=== PATIENT | female | born 1940 | race Caucasian/White ===

== ENCOUNTER 2016-12-19 19:31 | Emergency (ER) | payer MEDICARE, OTHER, SELFPAY | END 2016-12-19 21:05 | disposition home or self-care (01) | PROVIDERS: Emergency Provider Emergency Medicine; Family Provider Emergency Medicine; Visit Provider Emergency Medicine | DX: R21 Rash and other nonspecific skin eruption (principal); I10 Essential (primary) hypertension; J44.9 Chronic obstructive pulmonary disease, unspecified; E78.5 Hyperlipidemia, unspecified; K21.9 Gastro-esophageal reflux disease without esophagitis; F41.8 Other specified anxiety disorders | CPT/HCPCS: 87070; 87077; 87081; 87252; 99282 ==

== ENCOUNTER 2017-01-23 20:00 | Emergency (ER) | payer MEDICARE, OTHER, SELFPAY | END 2017-01-23 22:40 | disposition home or self-care (01) | PROVIDERS: Emergency Provider Emergency Medicine; Family Provider Emergency Medicine; Visit Provider Emergency Medicine | DX: J40 Bronchitis, not specified as acute or chronic (principal); D70.9 Neutropenia, unspecified; R04.2 Hemoptysis | CPT/HCPCS: 71020; 80053; 85025; 87275; 87276; 94640; 96365; 99284 ==

== ENCOUNTER → 2017-02-24 12:09 | Outpatient (CLI) | payer MEDICARE, OTHER, SELFPAY ==
[2017-02-24 13:50] LABS: Basophils % 0.9 % (0.1-2.0); Eosinophils # 0.1 K/mm3 (0.0-0.4); Eosinophils % 2.2 % (0.1-12.0); Hematocrit 40.3 % (37.0-47.0); Hemoglobin 12.7 g/dL (12.2-16.2); Lymphocytes # 0.7 K/mm3 (0.7-4.5); Lymphocytes % 34.1 K/mm3 (10-50); Mean Corpuscular HGB Conc 31.5 g/dL (31.8-35.4); Mean Corpuscular Hemoglobin 28.6 pg (27.0-31.2); Mean Corpuscular Volume 90.6 fl (81-99); Mean Platelet Volume 7.6 fl (7.4-10.4); Monocytes # 0.1 K/mm3 (0.1-1.0); Monocytes % 5.2 % (1.7-9.3); Neutrophils # 1.3 K/mm3 (1.8-7.8); Neutrophils % 57.6 % (37.0-80.0); Platelet Count 116 K/mm3 (142-424); Red Blood Count 4.45 M/mm3 (4.20-5.40); Red Cell Distribution Width 13.8 % (11.5-17.5); White Blood Count 2.2 K/mm3 (4.8-10.8)
[2017-02-24 14:05] LABS: Reticulocyte % (Auto) 1.1 % (0.9-3.2)
[2017-02-24 15:16] LABS: Lactate Dehydrogenase 176 U/L (82-234)
[2017-02-25 08:20] LABS: Immunoglobulin A, Qn 379 mg/dL (64-422); Immunoglobulin G, Qn 1019 mg/dL (700-1600); Immunoglobulin M, Qn 58 mg/dL (26-217)
[2017-02-25 15:16] LABS: Albumin 4.1 g/dL (2.9-4.4); Alpha-1-Globulin 0.2 g/dL (0.0-0.4); Alpha-2-Globulin 0.8 g/dL (0.4-1.0); Protein, Total 7.1 g/dL (6.0-8.5)
[2017-02-26 11:13] LABS: Cold Agglutinin Titer, Quant Negative (Neg <1:32)
[2017-02-26 17:15] LABS: Haptoglobin 118 mg/dL (34-200)
[2017-02-26 17:17] LABS: Antinuclear Antibodies, IFA Positive (.)
== END ==
PROVIDERS: PCP Nurse Practitioner; Visit Provider Nurse Practitioner
DX: D61.818 Other pancytopenia (principal)
CPT/HCPCS: 36415; 82784; 83010; 83615; 84165; 85025; 85044; 85060; 86038; 86157

== ENCOUNTER 2017-04-09 20:09 | Emergency (ER) | payer MEDICARE, OTHER, SELFPAY ==
[2017-04-09 20:17] VITALS: BP 185/90; PULSE 70; RESP 22; TEMP 37; O2SAT 98; BMI 26.9
[2017-04-09 20:22] VITALS: BMI 31.6
--- NOTE | 2017-04-09 20:24 | HMH.EDGENADL ---
ED Disposition Clinical Impression: Acute bronchitis Qualifiers: Bronchitis organism: unspecified organism Qualified Code(s): J20.9 - Acute bronchitis, unspecified Disposition: Xfer SNF Condition on Discharge: Good Instructions: DI for Acute Bronchitis Additional Instructions: Additional instructions for ACUTE BRONCHITIS: Use Tylenol or Ibuprofen for pain or fever. Rest and plenty of fluids. Return immediately if you have an uncontrollable fever greater than 102 degrees, severe headache or neck stiffness, difficulty breathing or shortness of breath, persistent vomiting, severe sore throat or inability to swallow. See your physician if not improving in 4-5 days. Prescriptions: Benzonatate [Tessalon Perle 100mg Cap] 100 mg PO TIDP PRN #20 cap PRN Reason: Cough levoFLOXacin [Levaquin 500mg tab] 500 mg PO DAILY #7 tab Referrals: Lilian Strong APRN [Primary Care Provider] - 3 days - Critical Care Critical Care Time: No Attestation: On , the high probability of a clinically significant, sudden or life threatening deterioration of the following system(s) required my full and direct attention, intervention and personal management. The time I documented below is in addition to time spent performing reported procedures but includes the following listed in this critical care notation. Medical Decision Making Vital Signs: 04/09/17 20:17 04/09/17 20:43 Temperature 98.6 F Temperature Source Temporal Artery Scan Pulse Rate 64 Pulse Rate [Right Radial] 70 Respiratory Rate 22 Blood Pressure [Right Arm] 185/90 Blood Pressure Mean [Right Arm] 121 Blood Pressure Source [Right Arm] Automatic Cuff Blood Pressure Position [Right Arm] Sitting 02 Sat by Pulse Oximetry 98 Oxygen Delivery Method Room Air - Lab Data Lab Results 04/09/17 20:13: Influenza Type A Ag Negative, Influenza Type B Ag Negative, Group A Strep Rapid Negative 04/09/17 21:00: WBC 1.2 L*, RBC 3.77 L, Hgb 10.9 L, Hct 33.3 L, MCV 88.3, MCH 28.9, MCHC 32.8, RDW 13.5, Plt Count 67 L, MPV 8.4, Neut % (Auto) 44.5, Lymph % (Auto) 44.9, [place] % (Auto) 7.9, Eos % (Auto) 1.5, Baso % (Auto) 1.2, Neut # (Auto) 0.5 L*, Lymph # (Auto) 0.5 L, [place] # (Auto) 0.1, Eos # (Auto) 0.0, Baso # (Auto) 0.0 04/09/17 21:00: Sodium 134 L, Potassium 3.3 L, Chloride 97 L, Carbon Dioxide 29, Anion Gap 11.3, BUN 8, Creatinine 0.75, Estimated Creat Clear 67, Estimated GFR 76, Est GFR ( Amer) 91, Glucose 176 H, Calcium 8.1 L, Total Bilirubin 0.3, AST 40 H, ALT 37, Alkaline Phosphatase 82, Total Protein 7.6, Albumin 3.8, Globulin 3.8 H, Albumin/Globulin Ratio 1.0 L 04/09/17 21:00: Lactic Acid 1.3 Result diagrams: 04/09/17 21:00 04/09/17 21:00 Orders (Tests/Meds): ED MEDICATIONS Generic Name Dose Route Start Last Admin Trade Name Freq PRN Reason Stop Dose Admin Albuterol/Ipratropium 3 ml 04/09/17 20:45 04/09/17 22:29 Duoneb 3ml Neb IH 05/09/17 20:44 3 ml Q1H WILLIAM Administration Discontinued Medications Generic Name Dose Route Start Last Admin Trade Name Freq PRN Reason Stop Dose Admin Hydrocodone Bitart/Acetaminophen 1 tab 04/09/17 20:34 04/09/17 20:38 [place] 5/325mg Tablet PO 04/09/17 20:35 1 tab ONCE ONE Administration Benzonatate 100 mg 04/09/17 20:34 04/09/17 20:38 Tessalon Perles 100mg Capsule PO 04/09/17 20:35 100 mg ONCE ONE Administration Levofloxacin 500 mg 04/09/17 21:56 04/09/17 22:06 Levaquin 500mg Tab PO 04/09/17 21:57 500 mg ONCE ONE Administration Protocol Potassium Chloride 40 meq 04/09/17 21:56 04/09/17 22:06 Klor-Con 20meq Tablet PO 04/09/17 21:57 40 meq ONCE ONE Administration ORDERS Category Date Time Status XR chest portable Stat Exams 04/09/17 20:33 Taken Blood Culture Stat Micro 04/09/17 21:00 Received Strep Screen Confirmation Stat Micro 02/16/18 20:13 Received - Radiology Data #1 Image(s): Chest Image Reviewed: Yes I reviewed the patient'
[2017-04-09 20:29] LABS: Strep Scrn Group A (Rapid) Negative (Negative)
--- NOTE | 2017-04-09 20:33 | XR_ITS ---
XR chest portable Ordering Physician: Jayjay Chaidez MD Patient Age: 76 years: Female HISTORY: ITS.REASON: cough TECHNIQUE: AP portable upright chest COMPARISON :01-23-17 CXR FINDINGS Less optimal inspiration today compared to prior study 2017. Right gilma-Diaphragms only down to anterior fourth rib.. This yields slight crowding of markings bilateral most evident on right.. Most likely suboptimal inspiration as well as the higher contrast digital technique on today's CXR accounts for today's mild accentuation of markings towardright lung base.. These features I believe also yields upper normal density appearance at the right polly . No consolidation nor convincing pneumonic infiltrate.. However, if cough/& respiratory symptoms persist would recommend a follow-up PA & lateral chest to better evaluate suggested. The right chest right hilar region to verify stable.. There may be some minor atelectasis towards right lung base today. Heart normal size. Aorta tortuous. Superior mediastinum unremarkable. Hyperexpansion most evident at the left upper lung field and apex. IMPRESSION: ] Stable chest with nothing definitely acute Favor less optimal inspiration and higher contrast technique slightly eccentric markings right infrahilar region right polly on today's study. Doubt significant change. However if cough and respiratory symptoms persist a follow-up 2 view chest suggested.
[2017-04-09 20:43] VITALS: PULSE 64; PULSE 71
[2017-04-09 21:08] LABS: Basophils % 1.2 % (0.1-2.0); Eosinophils % 1.5 % (0.1-12.0); Hematocrit 33.3 % (37.0-47.0); Hemoglobin 10.9 g/dL (12.2-16.2); Lymphocytes # 0.5 K/mm3 (0.7-4.5); Lymphocytes % 44.9 K/mm3 (10-50); Mean Corpuscular HGB Conc 32.8 g/dL (31.8-35.4); Mean Corpuscular Hemoglobin 28.9 pg (27.0-31.2); Mean Corpuscular Volume 88.3 fl (81-99); Mean Platelet Volume 8.4 fl (7.4-10.4); Monocytes # 0.1 K/mm3 (0.1-1.0); Monocytes % 7.9 % (1.7-9.3); Neutrophils # 0.5 K/mm3 (1.8-7.8); Neutrophils % 44.5 % (37.0-80.0); Platelet Count 67 K/mm3 (142-424); Red Blood Count 3.77 M/mm3 (4.20-5.40); Red Cell Distribution Width 13.5 % (11.5-17.5)
[2017-04-09 21:15] LABS: White Blood Count 1.2 K/mm3 (4.8-10.8)
[2017-04-09 21:28] LABS: Alanine Aminotransferase 37 U/L (12-78); Albumin Level 3.8 gm/dL (3.4-5.0); Alkaline Phosphatase 82 U/L (46-116); Anion Gap 11.3 mEq/L (5-15); Aspartate Amino Transferase 40 U/L (15-37); Bilirubin,Total 0.3 mg/dL (0.2-1.0); Blood Urea Nitrogen 8 mg/dL (7-18); Calcium 8.1 mg/dL (8.5-10.1); Carbon Dioxide 29 mmol/L (21.0-32.0); Chloride 97 mmol/L (98-107); Creatinine Clearance Estimated 67 mL/min (0-300); Creatinine,Serum 0.75 mg/dL (0.55-1.02); Estimated Glomerular Filt Rate 76 ml/min (>60); GFR (African American) 91 ML/MIN (>60); Globulin 3.8 gm/dl (1.3-3.2); Glucose 176 mg/dL (74-106); Potassium 3.3 mmoL/L (3.5-5.1); Sodium 134 mmol/L (136-145); Total Protein,Serum 7.6 gm/dL (6.4-8.2)
[2017-04-09 21:32] LABS: Lactic Acid 1.3 mmol/L (0.4-2.0)
[2017-04-09 22:09] VITALS: BP 153/89; PULSE 71; RESP 20; TEMP 36.8; O2SAT 96
[2017-04-09 22:39] VITALS: PULSE 71; PULSE 74
[2017-04-09 23:00] VITALS: BP 138/90; PULSE 90; RESP 18; TEMP 37.1; O2SAT 98
== END 2017-04-09 23:00 ==
PROVIDERS: Emergency Provider Emergency Medicine; Family Provider Emergency Medicine; PCP Nurse Practitioner
DX: J20.9 Acute bronchitis, unspecified (principal); J44.9 Chronic obstructive pulmonary disease, unspecified; E78.5 Hyperlipidemia, unspecified; M25.561 Pain in right knee; M25.562 Pain in left knee; Z79.899 Other long term (current) drug therapy; D61.818 Other pancytopenia
CPT/HCPCS: 71045; 80053; 83605; 85025; 87040; 87275; 87276; 87430; 99283

== ENCOUNTER 2017-05-07 05:44 | Emergency (ER) | payer MEDICARE, OTHER, SELFPAY ==
[2017-05-07 05:45] VITALS: BP 172/84; PULSE 67; RESP 24; TEMP 37.2; O2SAT 100; BMI 30.1
--- NOTE | 2017-05-07 05:58 | XR_ITS ---
XR chest portable COMPARISON: Portable upright chest 04/09/2017 HISTORY: Cough TECHNIQUE: Portable upright chest FINDINGS: There is a poor inspiration resulting some crowding of the vascular markings at the right base in particular. I cannot deftly exclude a minimal pneumonic infiltrate but the findings are likely due to the poor inspiration. There is aortic tortuosity but no cardiomegaly. The left lung field is clear. IMPRESSION: Poor inspiration, doubt acute chest pathology
--- NOTE | 2017-05-07 06:10 | HMH.EDSOB ---
ED Disposition Clinical Impression: Bronchitis Acute bronchitis Qualifiers: Bronchitis organism: unspecified organism Qualified Code(s): J20.9 - Acute bronchitis, unspecified Leukopenia Qualifiers: Leukopenia type: unspecified Qualified Code(s): D72.819 - Decreased white blood cell count, unspecified Disposition: Home, Self-Care Condition on Discharge: Good Instructions: DI for Chronic Bronchitis Additional Instructions: fluids and use meds Referrals: Lilian Strong APRN [Primary Care Provider] - - Critical Care Critical Care Time: No Attestation: On 05/07/17, the high probability of a clinically significant, sudden or life threatening deterioration of the following system(s) required my full and direct attention, intervention and personal management. The time I documented below is in addition to time spent performing reported procedures but includes the following listed in this critical care notation. Medical Decision Making - Medical Records Medical records reviewed: Yes: I reviewed the patient's medical records. - Andrew Inquiry Pt receiving controlled substance: No Vital Signs: 05/07/17 05:45 Temperature 98.9 F Temperature Source Rectal Pulse Rate [Left Brachial] 67 Respiratory Rate 24 Blood Pressure [Left Arm] 172/84 Blood Pressure Mean [Left Arm] 113 Blood Pressure Source [Left Arm] Automatic Cuff Blood Pressure Position [Left Arm] Sitting 02 Sat by Pulse Oximetry 100 Oxygen Delivery Method Nasal Cannula Oxygen Flow Rate (LPM) 3 - Lab Data Lab results reviewed: Yes: I reviewed the patient's lab results. Lab Results 05/07/17 06:20: WBC 1.8 L*, RBC 4.04 L, Hgb 11.3 L, Hct 35.0 L, MCV 86.6, MCH 28.0, MCHC 32.3, RDW 13.3, Plt Count 80 L, MPV 7.4, Neut % (Auto) 56.8, Lymph % (Auto) 33.1, [place] % (Auto) 6.4, Eos % (Auto) 2.8, Baso % (Auto) 0.9, Neut # (Auto) 1.0 L, Lymph # (Auto) 0.6 L, [place] # (Auto) 0.1, Eos # (Auto) 0.1, Baso # (Auto) 0.0 05/07/17 06:20: Sodium 130 L, Potassium 3.7, Chloride 94 L, Carbon Dioxide 29, Anion Gap 10.7, BUN 10, Creatinine 0.60, Estimated Creat Clear 60, Estimated GFR 98, Est GFR ( Amer) 118, Glucose 160 H, Calcium 8.3 L, Total Bilirubin 0.5, AST 21, ALT 24, Alkaline Phosphatase 87, Total Protein 7.3, Albumin 3.3 L, Globulin 4.0 H, Albumin/Globulin Ratio 0.8 L 05/07/17 06:20: Lactic Acid 0.6 05/07/17 06:20: Total Creatine Kinase 45, CK-MB (CK-2) 0.9, CK-MB (CK-2) Rel Index 2.0, Troponin I < 0.02 Result diagrams: 05/07/17 06:20 05/07/17 06:20 Orders (Tests/Meds): ED MEDICATIONS Generic Name Dose Route Start Last Admin Trade Name Freq PRN Reason Stop Dose Admin Ceftriaxone Sodium 1 gm/ 50 mls @ 100 mls/hr 05/07/17 08:15 Sodium Chloride IV 05/21/17 08:14 Q24H WILLIAM Protocol Ketorolac Tromethamine 30 mg 05/07/17 08:03 Toradol 30mg/Ml Vial IV 05/07/17 08:04 ONCE ONE Discontinued Medications Generic Name Dose Route Start Last Admin Trade Name Freq PRN Reason Stop Dose Admin Acetaminophen 500 mg 05/07/17 07:25 05/07/17 07:26 Tylenol 500mg Tablet PO 05/07/17 07:26 500 mg ONCE ONE Administration Methylprednisolone Sodium Succinate 125 mg 05/07/17 06:30 05/07/17 06:40 Solu-Medrol 125mg/2ml Vial IV 05/07/17 06:31 125 mg ONCE ONE Administration ORDERS Category Date Time Status Upper Respiratory Panel, PCR Stat Lab 05/07/17 06:51 Ordered Blood Culture Stat Micro 05/07/17 05:58 Ordered Sputum Culture & Gram Stain Stat Micro 05/07/17 06:20 Results - Radiology Data #1 Image(s): Chest Image Reviewed: Yes I reviewed the patient's radiology image Preliminary Findings: Normal/NAD - ECG Data Tracing #1 I reviewed this ECG and interpreted as documented below: Normal Sinus Rhythm: Yes Ischemic changes: non-specific ST-T wave changes Resp/SOB HPI - General Chief Complaint: Shortness of Breath/Dyspnea Stated Complaint: coughing up blood Time Seen by Provider:
[2017-05-07 06:45] LABS: Basophils % 0.9 % (0.1-2.0); Eosinophils # 0.1 K/mm3 (0.0-0.4); Eosinophils % 2.8 % (0.1-12.0); Hemoglobin 11.3 g/dL (12.2-16.2); Lymphocytes # 0.6 K/mm3 (0.7-4.5); Lymphocytes % 33.1 K/mm3 (10-50); Mean Corpuscular HGB Conc 32.3 g/dL (31.8-35.4); Mean Corpuscular Volume 86.6 fl (81-99); Mean Platelet Volume 7.4 fl (7.4-10.4); Monocytes # 0.1 K/mm3 (0.1-1.0); Monocytes % 6.4 % (1.7-9.3); Neutrophils % 56.8 % (37.0-80.0); Platelet Count 80 K/mm3 (142-424); Red Blood Count 4.04 M/mm3 (4.20-5.40); Red Cell Distribution Width 13.3 % (11.5-17.5); White Blood Count 1.8 K/mm3 (4.8-10.8)
[2017-05-07 07:00] LABS: Alanine Aminotransferase 24 U/L (12-78); Albumin Level 3.3 gm/dL (3.4-5.0); Albumin/Globulin Ratio 0.8 (1.1-1.8); Alkaline Phosphatase 87 U/L (46-116); Anion Gap 10.7 mEq/L (5-15); Aspartate Amino Transferase 21 U/L (15-37); Bilirubin,Total 0.5 mg/dL (0.2-1.0); Blood Urea Nitrogen 10 mg/dL (7-18); Calcium 8.3 mg/dL (8.5-10.1); Carbon Dioxide 29 mmol/L (21.0-32.0); Chloride 94 mmol/L (98-107); Creatinine Clearance Estimated 60 mL/min (0-300); Estimated Glomerular Filt Rate 98 ml/min (>60); GFR (African American) 118 ML/MIN (>60); Glucose 160 mg/dL (74-106); Potassium 3.7 mmoL/L (3.5-5.1); Sodium 130 mmol/L (136-145); Total Protein,Serum 7.3 gm/dL (6.4-8.2)
[2017-05-07 07:03] LABS: Lactic Acid 0.6 mmol/L (0.4-2.0)
[2017-05-07 07:35] LABS: Creatine Kinase 45 U/L (26-192); Creatine Kinase MB 0.9 mg/ml (0.0-3.6); Troponin I < 0.02 ng/ml (0.00-0.06)
[2017-05-07 08:17] VITALS: BP 166/83; PULSE 69; RESP 20; TEMP 36.8; O2SAT 95
[2017-05-07 08:26] LABS: Adenovirus,PCR Not Detected (NotDetected); Bordetella Pertussis Not Detected (NotDetected); Chlamydophila Pneumoniae, PCR Not Detected (NotDetected); Coronavirus 229E Not Detected (NotDetected); Coronavirus NL63 Not Detected (NotDetected); Coronavirus OC43 Not Detected (NotDetected); Coronovirus HKU1,PCR Not Detected (NotDetected); Human Metapneumovirus Not Detected (NotDetected); Influenza A, PCR Not Detected (NotDetected); Influenza AH1, 2009 Not Detected (NotDetected); Influenza AH1, PCR Not Detected (NotDetected); Influenza AH3,PCR Not Detected (NotDetected); Influenza B, PCR Not Detected (NotDetected); Mycoplasma Pneumoniae, PCR Not Detected (NotDected); Parainfluenza 1, PCR Not Detected (NotDetected); Parainfluenza 2, PCR Not Detected (NotDetected); Parainfluenza 3, PCR Not Detected (NotDetected); Parainfluenza 4, PCR Not Detected (NotDetected); Respiratory Syncytial Virus Not Detected (NotDetected); Rhinovirus/Enterovirus Not Detected (NotDetected)
[2017-05-07 08:48] VITALS: BP 173/86; PULSE 63; RESP 20; TEMP 37; O2SAT 99
--- NOTE | 2017-05-09 18:34 | PC.NURSE ---
Addressed sputum culture results with SEVERIANO Avelar; stated she would address sputum culture results on pt
== END 2017-05-07 08:50 | disposition home or self-care (01) ==
PROVIDERS: Emergency Provider Emergency Medicine; Family Provider Emergency Medicine; PCP Nurse Practitioner
DX: J20.9 Acute bronchitis, unspecified (principal); J44.9 Chronic obstructive pulmonary disease, unspecified; E78.5 Hyperlipidemia, unspecified; Z79.899 Other long term (current) drug therapy; D72.819 Decreased white blood cell count, unspecified
CPT/HCPCS: 71045; 80053; 82550; 82553; 83605; 84484; 85025; 87070; 87077; 87186; 87205; 87486; 87581; 87633; 87798; 93005; 96374; 96375; 99283

== ENCOUNTER 2017-05-07 17:25 | Emergency (ER) | payer MEDICARE, OTHER, SELFPAY ==
[2017-05-07 17:27] VITALS: BP 154/91; PULSE 85; RESP 20; TEMP 36.8; O2SAT 90; BMI 26.6
[2017-05-07 18:21] LABS: Basophils % 0.2 % (0.1-2.0); Eosinophils % 0.3 % (0.1-12.0); Hematocrit 35.4 % (37.0-47.0); Hemoglobin 11.7 g/dL (12.2-16.2); Lymphocytes # 0.3 K/mm3 (0.7-4.5); Lymphocytes % 11.7 K/mm3 (10-50); Mean Corpuscular Hemoglobin 28.5 pg (27.0-31.2); Mean Corpuscular Volume 86.5 fl (81-99); Mean Platelet Volume 7.6 fl (7.4-10.4); Monocytes # 0.1 K/mm3 (0.1-1.0); Neutrophils # 2.1 K/mm3 (1.8-7.8); Neutrophils % 85.7 % (37.0-80.0); Platelet Count 106 K/mm3 (142-424); Red Blood Count 4.09 M/mm3 (4.20-5.40); Red Cell Distribution Width 13.3 % (11.5-17.5); White Blood Count 2.4 K/mm3 (4.8-10.8)
[2017-05-07 18:26] LABS: MANUAL DIFFERENTIAL MANUAL DIFFERENTIAL (MANUAL DIFF)
[2017-05-07 18:30] LABS: Alanine Aminotransferase 26 U/L (12-78); Albumin Level 3.6 gm/dL (3.4-5.0); Albumin/Globulin Ratio 0.8 (1.1-1.8); Alkaline Phosphatase 91 U/L (46-116); Anion Gap 15.1 mEq/L (5-15); Bilirubin,Total 0.3 mg/dL (0.2-1.0); Blood Urea Nitrogen 10 mg/dL (7-18); Calcium 8.6 mg/dL (8.5-10.1); Carbon Dioxide 25 mmol/L (21.0-32.0); Chloride 92 mmol/L (98-107); Creatinine Clearance Estimated 60 mL/min (0-300); Estimated Glomerular Filt Rate 70 ml/min (>60); GFR (African American) 85 ML/MIN (>60); Globulin 4.5 gm/dl (1.3-3.2); Glucose 259 mg/dL (74-106); Sodium 127 mmol/L (136-145); Total Protein,Serum 8.1 gm/dL (6.4-8.2)
[2017-05-07 18:52] LABS: Aspartate Amino Transferase 30 U/L (15-37); Potassium 5.1 mmoL/L (3.5-5.1)
--- NOTE | 2017-05-07 19:15 | HMH.EDEPIS ---
ED Disposition Clinical Impression: Epistaxis Disposition: Home, Self-Care Condition on Discharge: Good Instructions: DI for Nosebleed Referrals: Tyrell Ferguson MD [Primary Care Provider] - - Critical Care Critical Care Time: No Attestation: On 05/07/17, the high probability of a clinically significant, sudden or life threatening deterioration of the following system(s) required my full and direct attention, intervention and personal management. The time I documented below is in addition to time spent performing reported procedures but includes the following listed in this critical care notation. Medical Decision Making - Andrew Inquiry Pt receiving controlled substance: No Andrew was queried for this patient: No Vital Signs: 05/07/17 17:27 Temperature 98.3 F Temperature Source Oral Pulse Rate [Right Brachial] 85 Respiratory Rate 20 Blood Pressure [Right Arm] 154/91 Blood Pressure Mean [Right Arm] 112 Blood Pressure Source [Right Arm] Automatic Cuff Blood Pressure Position [Right Arm] Sitting 02 Sat by Pulse Oximetry 90 L Oxygen Delivery Method Room Air - Lab Data Lab Results 05/07/17 18:00: WBC 2.4 L D, RBC 4.09 L, Hgb 11.7 L, Hct 35.4 L, MCV 86.5, MCH 28.5, MCHC 33.0, RDW 13.3, Plt Count 106 L D, MPV 7.6, Neut % (Auto) 85.7 H, Lymph % (Auto) 11.7, [place] % (Auto) 2.0, Eos % (Auto) 0.3, Baso % (Auto) 0.2, Neut # (Auto) 2.1, Lymph # (Auto) 0.3 L, [place] # (Auto) 0.1, Eos # (Auto) 0.0, Baso # (Auto) 0.0, Total Counted 100, Neutrophils % (Manual) 62, Band Neutrophils % 8.0, Lymphocytes % (Manual) 29, Monocytes % (Manual) 1 L, Platelet Estimate Slight decrease, Microcytosis 1+ 05/07/17 18:00: Sodium 127 L, Potassium 5.1 D, Chloride 92 L, Carbon Dioxide 25, Anion Gap 15.1 H, BUN 10, Creatinine 0.80 D, Estimated Creat Clear 60, Estimated GFR 70, Est GFR ( Amer) 85 D, Glucose 259 H D, Calcium 8.6, Total Bilirubin 0.3, AST 30 D, ALT 26, Alkaline Phosphatase 91, Total Protein 8.1, Albumin 3.6, Globulin 4.5 H, Albumin/Globulin Ratio 0.8 L Result diagrams: 05/07/17 18:00 05/07/17 18:00 Orders (Tests/Meds): ORDERS Category Date Time Status PT/PTT Stat Lab 05/07/17 19:18 Ordered Medical Decision Narrative: patient admits that she has low blood counts and has seen nurses medical assistants phlebotomists before. Epistaxis HPI - General Chief complaint: Epistaxis Stated complaint: NOSE BLEED Time Seen by Provider: 05/07/17 18:15 Mode of Arrival: EMS Source of Information: Patient Limitations: No Limitations Description of Symptoms (Recalled from ER Triage Doc. by RN): NOSE BLEED THAT WONT STOP - History of Present Illness MD complaint: epistaxis Location: bilateral nostril Onset (ago): hour(s) (1) Duration: constant Treatment prior to arrival: other (use home oxygen) - Related Data Home Medications Medication Instructions Recorded Confirmed acetaminophen 325 mg capsule 500 mg PO Q6H PRN 02/24/17 05/07/17 atorvastatin 10 mg tablet 10 mg PO QDAY 02/24/17 05/07/17 buspirone 15 mg tablet 15 mg PO QDAY tab 02/24/17 05/07/17 calcium carbonate 500 mg calcium 1,000 mg PO TIDP PRN tab 02/24/17 05/07/17 (1,250 mg) chewable tablet clonazepam 0.5 mg tablet 0.5 mg PO BID tab 02/24/17 05/07/17 diphenhydramine 25 mg capsule 25 mg PO Q4HP PRN cap 02/24/17 05/07/17 duloxetine 60 mg capsule,delayed 60 mg PO QDAY 02/24/17 05/07/17 release gabapentin 400 mg capsule 400 mg PO TID 02/24/17 05/07/17 guaifenesin ER 600 mg tablet, 600 mg PO Q12H PRN 02/24/17 05/07/17 extended release 12 hr losartan 25 mg tablet 25 mg PO QDAY 02/24/17 05/07/17 oxybutynin chloride ER 5 mg 5 mg PO QDAY 02/24/17 05/07/17 tablet,extended release 24 hr pantoprazole 40 mg tablet,delayed 40 mg PO BID tab 02/24/17 05/07/17 release potassium chloride ER 10 mEq 10 meq PO BID 02/24/17 05/07/17 tablet,extended release quetiapine 100 mg tablet 150 mg PO QHS tab 02/24/17 05/07/17 Azithromycin [Z-Maxx 250mg Tab] 250 mg PO UD DOS
--- NOTE | 2017-05-07 19:19 | ED_ITS ---
ED Disposition Clinical Impression: Epistaxis Disposition: Home, Self-Care Condition on Discharge: Good Instructions: DI for Nosebleed Referrals: Tyrell Ferguson MD [Primary Care Provider] - - Critical Care Critical Care Time: No Attestation: On 05/07/17, the high probability of a clinically significant, sudden or life threatening deterioration of the following system(s) required my full and direct attention, intervention and personal management. The time I documented below is in addition to time spent performing reported procedures but includes the following listed in this critical care notation. Medical Decision Making - Andrew Inquiry Pt receiving controlled substance: No Andrew was queried for this patient: No Vital Signs: 05/07/17 17:27 Temperature 98.3 F Temperature Source Oral Pulse Rate [Right Brachial] 85 Respiratory Rate 20 Blood Pressure [Right Arm] 154/91 Blood Pressure Mean [Right Arm] 112 Blood Pressure Source [Right Arm] Automatic Cuff Blood Pressure Position [Right Arm] Sitting 02 Sat by Pulse Oximetry 90 L Oxygen Delivery Method Room Air - Lab Data Lab Results 05/07/17 18:00: WBC 2.4 L D, RBC 4.09 L, Hgb 11.7 L, Hct 35.4 L, MCV 86.5, MCH 28.5, MCHC 33.0, RDW 13.3, Plt Count 106 L D, MPV 7.6, Neut % (Auto) 85.7 H, Lymph % (Auto) 11.7, [place] % (Auto) 2.0, Eos % (Auto) 0.3, Baso % (Auto) 0.2, Neut # (Auto) 2.1, Lymph # (Auto) 0.3 L, [place] # (Auto) 0.1, Eos # (Auto) 0.0, Baso # (Auto) 0.0, Total Counted 100, Neutrophils % (Manual) 62, Band Neutrophils % 8.0, Lymphocytes % (Manual) 29, Monocytes % (Manual) 1 L, Platelet Estimate Slight decrease, Microcytosis 1+ 05/07/17 18:00: Sodium 127 L, Potassium 5.1 D, Chloride 92 L, Carbon Dioxide 25 , Anion Gap 15.1 H, BUN 10, Creatinine 0.80 D, Estimated Creat Clear 60, Estimated GFR 70, Est GFR ( Amer) 85 D, Glucose 259 H D, Calcium 8.6, Total Bilirubin 0.3, AST 30 D, ALT 26, Alkaline Phosphatase 91, Total Protein 8.1, Albumin 3.6, Globulin 4.5 H, Albumin/Globulin Ratio 0.8 L Result diagrams: 05/07/17 18:00 05/07/17 18:00 Orders (Tests/Meds): ORDERS Category Date Time Status PT/PTT Stat Lab 05/07/17 19:18 Ordered Medical Decision Narrative: patient admits that she has low blood counts and has seen correspondence review clerk before. Epistaxis HPI - General Chief complaint: Epistaxis Stated complaint: NOSE BLEED Time Seen by Provider: 05/07/17 18:15 Mode of Arrival: EMS Source of Information: Patient Limitations: No Limitations Description of Symptoms (Recalled from ER Triage Doc. by RN): NOSE BLEED THAT WONT STOP - History of Present Illness MD complaint: epistaxis Location: bilateral nostril Onset (ago): hour(s) (1) Duration: constant Treatment prior to arrival: other (use home oxygen) - Related Data Home Medications Medication Instructions Recorded Confirmed acetaminophen 325 mg capsule 500 mg PO Q6H PRN 02/24/17 05/07/17 atorvastatin 10 mg tablet 10 mg PO QDAY 02/24/17 05/07/17 buspirone 15 mg tablet 15 mg PO QDAY tab 02/24/17 05/07/17 calcium carbonate 500 mg calcium 1,000 mg PO TIDP PRN tab 02/24/17 05/07/17 (1,250 mg) chewable tablet clonazepam 0.5 mg tablet 0.5 mg PO BID tab 02/24/17 05/07/17 diphenhydramine 25 mg capsule 25 mg PO Q4HP PRN cap 02/24/17 05/07/17 duloxetine 60 mg capsule,delayed 60 mg PO QDAY 02/24/17
[2017-05-07 19:32] LABS: Lymphocytes % 29 % (10-50); Monocytes % 1 % (2-9); Neutrophils % 62 % (42-76); Platelet Estimate Slight Decrease; Total Cells Counted 100
[2017-05-07 19:33] LABS: Microcytosis 1+
[2017-05-07 20:34] LABS: Activated Partial Thrombo Time 24.1 seconds (23.6-34.0); Prothrombin Time 11.9 seconds (9.4-11.8)
[2017-05-07 21:33] VITALS: BP 151/88; PULSE 98; RESP 18; TEMP 37.1; O2SAT 98
== END 2017-05-07 21:39 | disposition home or self-care (01) ==
PROVIDERS: Emergency Provider Family Medicine; Family Provider Emergency Medicine; PCP Emergency Medicine
DX: R04.0 Epistaxis (principal); J20.9 Acute bronchitis, unspecified; J44.9 Chronic obstructive pulmonary disease, unspecified; Z99.81 Dependence on supplemental oxygen
CPT/HCPCS: 36415; 71045; 80053; 82550; 82553; 83605; 84484; 85007; 85025; 85610; 85730; 87070; 87077; 87186; 87205; 87486; 87581; 87633; 87798; 93005; 96374; 96375; 99211; 99282; 99283

== ENCOUNTER 2017-06-01 16:56 | Observation (INO) ==
--- NOTE | 2017-06-01 17:31 | Emergency Department Note ---
ED Disposition Condition on Discharge: Good - Critical Care Critical Care Time: No <VivekJayjay lundberg - Last Filed: 06/01/17 20:01> <Tyrell Ferguson - Last Filed: 06/01/17 21:26> Clinical Impression: Epistaxis, Pancytopenia Hypotension Qualifiers: Hypotension type: unspecified hypotension type Qualified Code(s): I95.9 - Hypotension, unspecified Chest pain Qualifiers: Chest pain type: precordial pain Qualified Code(s): R07.2 - Precordial pain Disposition: Admitted as Observation Referrals: Tyrell Ferguson MD [Primary Care Provider] - Attestation: On 06/01/17, the high probability of a clinically significant, sudden or life threatening deterioration of the following system(s) required my full and direct attention, intervention and personal management. The time I documented below is in addition to time spent performing reported procedures but includes the following listed in this critical care notation. Medical Decision Making - Andrew Inquiry Pt receiving controlled substance: No - Lab Data Result diagrams: 06/01/17 17:25 06/01/17 17:25 - Radiology Data #1 Image(s): Chest Image Reviewed: Yes I reviewed the patient's radiology image Preliminary Findings: Normal/NAD <Jayjay Chaidez - Last Filed: 06/01/17 20:01> - Lab Data Lab results reviewed: Yes: I reviewed the patient's lab results. Result diagrams: 06/01/17 17:25 06/01/17 17:25 - ECG Data Tracing #2 I reviewed this ECG and interpreted as documented below: Normal Sinus Rhythm: Yes Ischemic changes: non-specific ST-T wave changes - Physician Consults Physician Consulted: joan Reason -: Pt condition - STEPHEN Score for Non-STEMI Age of patient: 65 yrs or more Number of risk factors for CAD: Presence of 3 or more Prior coronary artery stenosis(seen in coronary angiography): Less than 50% ST-Segment deviation on ECG (more than 1 min): Absent Prior aspirin intake: ASA intake in the last 7 days Severe anginal chest pain: Two or more episodes in last 24 hours Elevated cardiac markers(CK-MB or troponin): Absent Non-Stemi Risk Score: 4 <Tyrell Ferguson - Last Filed: 06/01/17 21:26> Vital Signs: 06/01/17 17:01 06/01/17 18:31 Temperature 98.4 F Temperature Source Oral Pulse Rate [Right] 92 H 85 Respiratory Rate 18 12 Blood Pressure [Right Arm] 103/61 92/76 Blood Pressure Mean [Right Arm] 75 81 Blood Pressure Source [Right Arm] Automatic Cuff Automatic Cuff Blood Pressure Position [Right Arm] Supine Supine 02 Sat by Pulse Oximetry 94 L 97 Oxygen Delivery Method Room Air - Lab Data Lab Results 06/01/17 17:25: WBC 1.9 L*, RBC 3.72 L, Hgb 10.4 L, Hct 33.2 L, MCV 89.1, MCH 28.0, MCHC 31.5 L, RDW 13.4, Plt Count 91 L, MPV 8.3, Neut % (Auto) 52.2, Lymph % (Auto) 35.6, [place] % (Auto) 7.9, Eos % (Auto) 3.1, Baso % (Auto) 1.2, Neut # ( Auto) 1.0 L, Lymph # (Auto) 0.7, [place] # (Auto) 0.2, Eos # (Auto) 0.1, Baso # ( Auto) 0.0 06/01/17 17:25: Sodium 142, Potassium 3.7, Chloride 105, Carbon Dioxide 28, Anion Gap 12.7, BUN 16, Creatinine 1.47 H, Estimated Creat Clear 43, Estimated GFR 35 L, Est GFR ( Amer) 42 L, Glucose 171 H, Calcium 8.7, Total Bilirubin 0.3, AST 23, ALT 22, Alkaline Phosphatase 119 H, Total Protein 7.4, Albumin 3.7, Globulin 3.7 H, Albumin/Globulin Ratio 1.0 L 06/01/17 17:25: Lactic Acid 2.1 H 06/01/17 17:25: Total Creatine Kinase 43, CK-MB (CK-2) 0.8, CK-MB (CK-2) Rel Index 1.9, Troponin I < 0.02 06/01/17 17:52: Specimen Source R/r, O2 % R/a, ABG pH 7.41, ABG pCO2 37.1, ABG pO2 74.5 L, ABG HCO3 22.8, ABG Total CO2 23.9, ABG O2 Saturation 95, ABG Base Excess -1.9, Thom Test Y 06/01/17 19:00: Urine Color Yellow, Urine Appearance Clear, Urine pH 5.5, Ur Specific [place] 1.025, Urine Protein Trace, Urine Glucose (UA) Negative, Urine Ketones Trace, Urine Blood 2+, Urine Nitrate Negative, Urine Bilirubin 1+ A, Urine Urobilinogen 0.2, Ur Leukocyte Esterase Trace, Urine RBC 5-10, Urine WBC 5 -10, Ur Squamous Epith Cells None, Urine Bacteria 2+ 06/01/17 20:00: Troponin I < 0.02 Orders (Tests/Meds): ED MEDICATIONS Discontinued Medications Generic Name Dose Route Start Last Admin Trade Name Freq PRN Reason Stop Dose Admin Sodium Chloride 1,000 mls @ 999 mls/hr 06/01/17 18:15 06/01/17 18:15 Sod Chlor 0.9% 1000ml Bag IV 06/01/17 19:15 999 mls/hr .Q1H1M WILLIAM Administration ORDERS Category Date Time Status Blood Culture Stat Micro 06/01/17 17:25 Received Urine Culture Stat Micro 06/01/17 19:00 Received ABG [Arterial Blood Gas] Stat RT 06/01/17 17:27 Ordered ECG Request by /Belkis Stat Y 06/01/17 17:17 Ordered - ECG Data Tracing #1 EKG interpreted by Jayjay Chaidez MD: Rhythm: sinus Rate: 86 Alpha: normal Ectopy: none Conduction: normal ST Segment Changes: Nonspecific V6, III, AVF T Wave Changes: Nonspecific V6, III, AVF Q Waves: none No evidence of acute ischemia or injury (Jayjay Chaidez) Medical Decision Narrative: 6:10 PM: Discussed with Dr. Ferguson. Perform 2 sets of troponins. 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 Ferguson, who will assume care of the patient at this time. I have discussed all clinical information including history, physical and diagnostic study results. Preliminary diagnoses based on information available at this point have been recorded by me. Controlled substance administration and critical care statement are also preliminary, as of the time of handoff. (Jayjay Chaidez) General Adult HPI - General Mode of Arrival: EMS Limitations: Physical Limitations Description of Symptoms (Recalled from ER Triage Doc. by RN): pain in both shoulders radiating to the back and both legs <Jayjay Chaidez - Last Filed: 06/01/17 20:01> <Tyrell Ferguson - Last Filed: 06/01/17 21:26> - General Chief complaint: PAIN Stated complaint: pain in shoulders Time Seen by Provider: 06/01/17 17:30 - History of Present Illness HPI narrative: The patient is brought in by ambulance. Seen by in emergency department for a left anterior nosebleed. She had not bled heavily, coughed up a few clots. When staff checked on her this afternoon they found her to have a blood pressure in the 70s and therefore she is sent back in. The patient complains of pain across her back across both shoulders and going down her back to her knees and her knees hurt severely. She says all of this is chronic for several months. Dr. Ferguson confirms patient has chronic pain. (Jayjay Chaidez) - Related Data Home Medications Medication Instructions Recorded Confirmed acetaminophen 325 mg capsule 500 mg PO Q6H PRN 02/24/17 06/01/17 atorvastatin 10 mg tablet 10 mg PO QDAY 02/24/17 06/01/17 buspirone 15 mg tablet 15 mg PO BID tab 02/24/17 06/01/17 calcium carbonate 500 mg calcium 1,000 mg PO TIDP PRN tab 02/24/17 06/01/17 (1,250 mg) chewable tablet clonazepam 0.5 mg tablet 0.5 mg PO BID tab 02/24/17 06/01/17 diphenhydramine 25 mg capsule 25 mg PO Q4HP PRN cap 02/24/17 06/01/17 duloxetine 60 mg capsule,delayed 60 mg PO QDAY 02/24/17 06/01/17 release gabapentin 400 mg capsule 400 mg PO TID 02/24/17 06/01/17 guaifenesin ER 600 mg tablet, 600 mg PO Q12H PRN 02/24/17 06/01/17 extended release 12 hr losartan 25 mg tablet 25 mg PO QDAY 02/24/17 06/01/17 oxybutynin chloride ER 5 mg 5 mg PO QDAY 02/24/17 06/01/17 tablet,extended release 24 hr pantoprazole 40 mg tablet,delayed 40 mg PO BID tab 02/24/17 06/01/17 release potassium chloride ER 10 mEq 10 meq PO BID 02/24/17 06/01/17 tablet,extended release Benzonatate [Benzonatate 100mg 100 mg PO TIDP PRN 05/07/17 06/01/17 cap] LORazepam [Ativan 1mg tablet] 1 mg PO BID PRN 05/07/17 06/01/17 Mag Hydrox/Aluminum Hyd/Simeth 30 ml PO Q6HP PRN 05/07/17 06/01/17 [Gricel-Lanta Liquid] OXcarbazepine [Trileptal 150mg 150 mg PO BID 05/07/17 06/01/17 tablet] Previous Rx's Medication Instructions Recorded Benzonatate [Tessalon [place]le 100mg 100 mg PO TIDP PRN #20 cap 04/09/17 Cap] Allergies Allergy/AdvReac Type Severity Reaction Status Date / Time No Known Allergies Allergy Verified 02/24/17 11:13 [facility] History Medical History: Reports:: Chronic Obstructive Pulmonary Disease (COPD), Hyperlipidemia Denies:: Cancer, Diabetes Mellitus Type 1, Diabetes Mellitus Type 2, Internal Pacemaker, MRSA Other Medical History: Reports: Anemia Laterality Cases: Bilateral: Arthroscopy Knee Other Surgeries: No: Pacemaker Amputation: No Fractures: No - Social History Smoking Status: Never smoker Alcohol Intake: never Substance Use Type: denies use Occupational Status: disabled Housing: skilled nursing Household Members: caregiver - Psychiatric History Expresses thoughts of harming self/others: None Suicide Plan Description: No Plan Family Hx:: Unable to obtain <Jayjay Chaidez - Last Filed: 06/01/17 20:01> ROS Obtained: Yes All systems reviewed & no additional complaints - ENT Ears, Nose, Mouth, and Throat: Reports epistaxis - Musculoskeletal Musculoskeletal: Reports joint pain, Reports back pain <Jayjay Chaidez - Last Filed: 06/01/17 20:01> Physical Exam - General General appearance: in no apparent distress - Head Head exam: atraumatic, normocephalic, normal inspection - Eye Eye exam: Present: normal appearance, PERRL, EOMI - ENT ENT exam: Present: normal exam, normal oropharynx, mucous membranes moist, TM's normal bilaterally, normal external ear exam - Neck Neck exam: Present: normal inspection, full ROM, trachea midline. Absent: meningismus, lymphadenopathy - Chest Chest inspection: Present: normal inspection, symmetric chest wall rise. Absent : tenderness - Respiratory Respiratory exam: Present: normal lung sounds bilaterally. Absent: respiratory distress - Cardiovascular Cardiovascular exam: Present: regular rate, normal rhythm. Absent: JVD - Abdominal Exam Abdominal exam: Present: soft, normal bowel sounds. Absent: distention, tenderness, guarding - Extremities Exam Extremities exam: Present: normal inspection, full ROM, normal capillary refill. Absent: calf tenderness - Back Exam Back exam: Present: normal inspection, tenderness - Neurological Exam Neurological exam: Present: alert, oriented X3 - Psychiatric Psychiatric exam: Present: normal affect, normal mood - Skin Skin exam: Present: warm, dry, intact, normal color - Lymphatic Lymphatic Findings: no adenopathy <Jayjay Chaidez - Last Filed: 06/01/17 20:01> <Tyrell Ferguson - Last Filed: 06/01/17 21:26> - General Comment: Mildly drowsy, as she was this morning (Jayjay Chaidez) - Back Exam Comment: Generalized upper back (Jayjay Chaidez) - Other Other exam information: Tenderness of both knees without effusions, erythema, edema, or ecchymosis. Neurovascular intact throughout. Peripheral pulses 2+ in all 4 extremities and symmetric. No pulse deficits. (Jayjay Chaidez)
[2017-06-01 17:39] LABS: Basophils % 1.2 % (0.1-2.0); Eosinophils # 0.1 K/mm3 (0.0-0.4); Eosinophils % 3.1 % (0.1-12.0); Hematocrit 33.2 % (37.0-47.0); Hemoglobin 10.4 g/dL (12.2-16.2); Lymphocytes # 0.7 K/mm3 (0.7-4.5); Lymphocytes % 35.6 K/mm3 (10-50); Mean Corpuscular HGB Conc 31.5 g/dL (31.8-35.4); Mean Corpuscular Volume 89.1 fl (81-99); Mean Platelet Volume 8.3 fl (7.4-10.4); Monocytes # 0.2 K/mm3 (0.1-1.0); Monocytes % 7.9 % (1.7-9.3); Neutrophils % 52.2 % (37.0-80.0); Platelet Count 91 K/mm3 (142-424); Red Blood Count 3.72 M/mm3 (4.20-5.40); Red Cell Distribution Width 13.4 % (11.5-17.5); White Blood Count 1.9 K/mm3 (4.8-10.8)
[2017-06-01 17:54] LABS: ABG Base Excess -1.9 mmol/L (-2.4-2.3); ABG HCO3 22.8 mmhg (22.0-26.0); ABG Oxygen Saturation 95 % (90-100); ABG PCO2 37.1 mmhg (35.0-45.0); ABG PH 7.41 mmol/L (7.35-7.45); ABG PO2 74.5 mmhg (80-100); ABG TCO2 23.9 mmhg (23-27); Allen's Test Y
[2017-06-01 17:55] LABS: Oxygen R/A %
[2017-06-01 17:55] LABS: Albumin Level 3.7 gm/dL (3.4-5.0); Anion Gap 12.7 mEq/L (5-15); Bilirubin,Total 0.3 mg/dL (0.2-1.0); Calcium 8.7 mg/dL (8.5-10.1); Globulin 3.7 gm/dl (1.3-3.2); Potassium 3.7 mmoL/L (3.5-5.1); Total Protein,Serum 7.4 gm/dL (6.4-8.2)
[2017-06-01 18:19] LABS: Creatine Kinase 43 U/L (26-192)
[2017-06-01 19:05] LABS: Microscopic, Urine URINE MICROSCOPIC (MICROSCOPIC)
[2017-06-01 19:19] LABS: Appearance,Urine CLEAR (Clear); Blood, Urine 2+ (Negative); Color,Urine YELLOW (Yellow); Glucose,Urine (UA) Negative (Negative); Ketones,Urine TRACE (Negative); Leukocyte Esterase,Urine TRACE (Negative); PH,Urine 5.5 (5.0-8.5); Protein,Urine TRACE (Negative); Specific Gravity, Urine 1.025 (1.005-1.030); Urobilinogen,Urine 0.2 EU/dl (0.2)
[2017-06-01 19:29] LABS: Bacteria,Urine 2+ /lpf; Bilirubin,Urine 1+ (Negative)
[2017-06-02 07:01] LABS: Anion Gap 11.8 mEq/L (5-15); Chol/HDL Ratio 2.6 (1-3.5); Potassium 3.8 mmoL/L (3.5-5.1)
[2017-06-02 07:15] LABS: Basophils % 1.4 % (0.1-2.0); Eosinophils # 0.1 K/mm3 (0.0-0.4); Eosinophils % 4.3 % (0.1-12.0); Hematocrit 30.6 % (37.0-47.0); Hemoglobin 9.7 g/dL (12.2-16.2); Lymphocytes # 0.5 K/mm3 (0.7-4.5); Lymphocytes % 36.4 K/mm3 (10-50); Mean Corpuscular HGB Conc 31.6 g/dL (31.8-35.4); Mean Corpuscular Hemoglobin 28.3 pg (27.0-31.2); Mean Corpuscular Volume 89.6 fl (81-99); Mean Platelet Volume 8.3 fl (7.4-10.4); Monocytes # 0.1 K/mm3 (0.1-1.0); Monocytes % 6.2 % (1.7-9.3); Neutrophils # 0.7 K/mm3 (1.8-7.8); Neutrophils % 51.8 % (37.0-80.0); Platelet Count 88 K/mm3 (142-424); Red Blood Count 3.41 M/mm3 (4.20-5.40); Red Cell Distribution Width 13.2 % (11.5-17.5)
[2017-06-02 07:27] LABS: White Blood Count 1.4 K/mm3 (4.8-10.8)
--- NOTE | 2017-06-02 08:20 | Pharmacy Consult Notes ---
[facility] Pharmacy VTE Monitoring - Patient Demographics Admission date: 06/01/17 Report Date: 06/02/17 Time: 08:20 Allergies/Adverse Reactions: Patient Allergies No Known Allergies Allergy (Verified 02/24/17 11:13) Height: 1.65 m Weight: 80.031 kg Patient Problems: Current Active Problems Epistaxis (Acute) Hypotension (Acute) Chest pain (Acute) Pancytopenia (Acute) - VTE Risk Labs: VTE Related Lab Results Hgb 9.7 g/dL (12.2-16.2) L 06/02/17 06:00 Hct 30.6 % (37.0-47.0) L 06/02/17 06:00 Plt Count 88 K/mm3 (142-424) L 06/02/17 06:00 BUN 13 mg/dL (7-18) 06/02/17 06:00 Creatinine 0.82 mg/dL (0.55-1.02) D 06/02/17 06:00 Estimated Creat Clear 62 mL/min (0-300) 06/02/17 06:00 Was VTE Risk Assessment Performed: Yes VTE Score: 2 VTE Risk Level: Very Low Risk Clinical Trial Participant: No - Prophylaxis VTE Prophylaxis Ordered?: Yes Types of VTE Prophylaxis: TEDS Knee High Location of Applied Device: Bilateral Lower Extremeties
--- NOTE | 2017-06-02 09:05 | Consult Report ---
History of Present Illness Consult date: 06/02/17 Requesting physician: Tyrell Ferguson Consult reason: chest pain, hypotension Chief complaint: Chest discomfort, weakness Additional Medical History:: 1. History of pancytopenia with previous workup by Dr. Alta ramires. 2. COPD without tobacco use 3. Hyperlipidemia History of present illness: 76-year-old white female resident of [facility] presented to the emergency department for weakness and chest discomfort with radiation into the neck. Patient relates similar episodes recently with activity. She reports a remote history of myocardial infarction without further workup. Patient denies tobacco use or history of diabetes. In the emergency department patient was noted to have T-wave inversion in the inferior leads that resolved with resolution of chest discomfort. Patient was noted to be hypotensive upon ER evaluation which improved once chest discomfort resolved. Patient has a history of chronic pancytopenia with white count in the 1-2000 range, hemoglobin in the 10 range and platelet counts in the 80-100,000 range. Patient had a spontaneous episode of epistaxis earlier in the day that was treated in ER and patient was sent back to [facility] with a resultant chest discomfort, weakness and hypotension episode after that. She was admitted for further evaluation. Troponins overnight have returned normal. EKG this room this morning shows sinus rhythm with nonspecific ST-T abnormalities in inferior leads. Cardiology consulted for further evaluation. [facility] History Medical History: Reports:: Chronic Obstructive Pulmonary Disease (COPD), Hyperlipidemia Denies:: Cancer, Diabetes Mellitus Type 1, Diabetes Mellitus Type 2, Internal Pacemaker, MRSA Other Medical History: Reports: Anemia Laterality Cases: Bilateral: Arthroscopy Knee Other Surgeries: No: Pacemaker Amputation: No Fractures: No - *Social History Smoking Status: Never smoker Alcohol Intake: never Substance Use Type: denies use Occupational Status: disabled Housing: detention Household Members: caregiver - Psychiatric History Expresses thoughts of harming self/others: None Suicide Plan Description: No Plan *Family Hx:: Unable to obtain Meds Home Medications Medication Instructions Recorded Confirmed Type acetaminophen 325 mg capsule 500 mg PO Q6H PRN 02/24/17 06/01/17 History atorvastatin 10 mg tablet 10 mg PO HS 02/24/17 06/02/17 History buspirone 15 mg tablet 15 mg PO BID tab 02/24/17 06/02/17 History calcium carbonate 500 mg calcium 1,000 mg PO TIDP PRN tab 02/24/17 06/01/17 History (1,250 mg) chewable tablet clonazepam 0.5 mg tablet 0.5 mg PO BID tab 02/24/17 06/02/17 History diphenhydramine 25 mg capsule 25 mg PO Q4HP PRN cap 02/24/17 06/01/17 History duloxetine 60 mg capsule,delayed 60 mg PO DAILY 02/24/17 06/02/17 History release gabapentin 400 mg capsule 400 mg PO TID 02/24/17 06/02/17 History guaifenesin ER 600 mg tablet, 600 mg PO BID 02/24/17 06/02/17 History extended release 12 hr losartan 25 mg tablet 25 mg PO DAILY 02/24/17 06/02/17 History oxybutynin chloride ER 5 mg 5 mg PO DAILY 02/24/17 06/02/17 History tablet,extended release 24 hr pantoprazole 40 mg tablet,delayed 40 mg PO BID tab 02/24/17 06/02/17 History release potassium chloride ER 10 mEq 10 meq PO BID 02/24/17 06/01/17 History tablet,extended release Benzonatate [Benzonatate 100mg 100 mg PO TIDP PRN 05/07/17 06/01/17 History cap] LORazepam [Ativan 1mg tablet] 1 mg PO BID PRN 05/07/17 06/01/17 History Mag Hydrox/Aluminum Hyd/Simeth 30 ml PO Q6HP PRN 05/07/17 06/01/17 History [Gricel-Lanta Liquid] OXcarbazepine [Trileptal] 300 mg PO BID 06/02/17 06/02/17 History Quetiapine Fumarate 200 mg PO TID 06/02/17 06/02/17 History Allergies Allergy/AdvReac Type Severity Reaction Status Date / Time No Known Allergies Allergy Verified 02/24/17 11:13 Review of Systems - *Cardiovascular Reports chest pain, Reports shortness of breath with activity - *Respiratory Reports shortness of breath - *Gastrointestinal Denies abdominal pain - *Musculoskeletal Reports back pain Exam Vital signs and Labs for Last 24 Hours: Temp Pulse Resp BP Pulse Ox 97.9 F 61 20 163/78 98 06/02/17 08:04 06/02/17 08:04 06/02/17 08:04 06/02/17 08:04 06/02/17 08:04 Laboratory Results - last 24 hr 06/02/17 06:00: Troponin I < 0.02 06/02/17 06:00: WBC 1.4 L* D, RBC 3.41 L, Hgb 9.7 L, Hct 30.6 L, MCV 89.6, MCH 28.3, MCHC 31.6 L, RDW 13.2, Plt Count 88 L, MPV 8.3, Neut % (Auto) 51.8, Lymph % (Auto) 36.4, [place] % (Auto) 6.2, Eos % (Auto) 4.3, Baso % (Auto) 1.4, Neut # ( Auto) 0.7 L*, Lymph # (Auto) 0.5 L, [place] # (Auto) 0.1, Eos # (Auto) 0.1, Baso # (Auto) 0.0 06/02/17 06:00: Sodium 142, Potassium 3.8, Chloride 106, Carbon Dioxide 28, Anion Gap 11.8, BUN 13, Creatinine 0.82 D, Estimated Creat Clear 62, Estimated GFR 68, Est GFR ( Amer) 82 D, Glucose 131 H D, Magnesium 1.1 L, Triglycerides 120, Cholesterol 87 L, LDL Cholesterol 29, VLDL Cholesterol 24, HDL Cholesterol 34, Cholesterol/HDL Ratio 2.6 I & O for Last 24 hours: Intake & Output 05/30/17 05/31/17 06/01/17 06/02/17 11:59 11:59 11:59 11:59 Intake Total 480 / 480 Balance 480 / 480 Weight 176 lb 7 oz - *Routine Neck Exam Absent: JVD, carotid bruit - *Routine Respiratory Exam Present: CTA bilaterally - *Routine Cardiovascular Exam Present: RRR. Absent: murmur, gallop - *Routine Extremities Exam Absent: edema - *Routine Neurological Exam Present: alert, oriented X3, moving all extremities Assessment and Plan (1) Chest pain Current visit: Yes Status: Acute Qualifiers: Chest pain type: precordial pain Qualified Code(s): R07.2 - Precordial pain Category: Medical Code(s): R07.9 - Chest pain, unspecified (2) COPD (chronic obstructive pulmonary disease) Current visit: Yes Status: Acute Category: Medical Code(s): J44.9 - Chronic obstructive pulmonary disease, unspecified (3) Hyperlipidemia Current visit: Yes Status: Acute Category: Medical Code(s): E78.5 - Hyperlipidemia, unspecified (4) Epistaxis Current visit: Yes Status: Acute Category: Medical Code(s): R04.0 - Epistaxis (5) Hypotension Current visit: Yes Status: Acute Qualifiers: Hypotension type: unspecified hypotension type Qualified Code(s): I95.9 - Hypotension, unspecified Category: Medical Code(s): I95.9 - Hypotension, unspecified (6) Pancytopenia Current visit: Yes Status: Acute Category: Medical Code(s): D61.818 - Other pancytopenia - Assessment and plan all Dx Assessment and Plan for all problems:: 1. With fluctuating EKG changes, chest discomfort and transient hypotension with a STEPHEN score of 3 would recommend patient have left heart catheterization. Risk and benefits discussed with the patient she agrees to proceed. 2. Add low dose metoprolol 25 mg daily and ASA 81 mg daily. 3. Echo pending 4. Further recommendations pending cath
--- NOTE | 2017-06-02 16:29 | History & Physical Report ---
*Admission Date: 06/01/17 *Chief complaint: chest pain *History of present illness: this wf who had nosebleed and was sent to [facility] and returned with chest and upper back pain with abn bp and had abn ekg in ed which improved with improved sx -76-year-old white female resident of [facility] presented to the emergency department for weakness and chest discomfort with radiation into the neck. Patient relates similar episodes recently with activity. She reports a remote history of myocardial infarction without further workup. Patient denies tobacco use or history of diabetes. In the emergency department patient was noted to have T-wave inversion in the inferior leads that resolved with resolution of chest discomfort. Patient was noted to be hypotensive upon ER evaluation which improved once chest discomfort resolved. Patient has a history of chronic pancytopenia with white count in the 1-2000 range, hemoglobin in the 10 range and platelet counts in the 80-100,000 range. Patient had a spontaneous episode of epistaxis earlier in the day that was treated in ER and patient was sent back to [facility] with a resultant chest discomfort, weakness and hypotension episode after that. She was admitted for further evaluation. Troponins overnight have returned normal. EKG this room this morning shows sinus rhythm with nonspecific ST-T abnormalities in inferior leads. Cardiology consulted for further al [facility] History I have reviewed the patient's past medical history: Yes Medical History: Reports:: Chronic Obstructive Pulmonary Disease (COPD), Hyperlipidemia Denies:: Cancer, Diabetes Mellitus Type 1, Diabetes Mellitus Type 2, Internal Pacemaker, MRSA Other Medical History: Reports: Anemia Laterality Cases: Bilateral: Arthroscopy Knee Other Surgeries: No: Pacemaker Amputation: No Fractures: No - *Social History Smoking Status: Never smoker Alcohol Intake: never Substance Use Type: denies use Occupational Status: disabled Housing: [facility] Household Members: caregiver - Psychiatric History Expresses thoughts of harming self/others: None Suicide Plan Description: No Plan *Family Hx:: Unable to obtain Review of Systems - Review of Systems Review of systems:: pertinent systems reviewed and negative unless documented below - Constitutional Denies fever(s) - Eyes Denies change in vision - ENT Denies sore throat - *Cardiovascular Reports chest pain at rest - *Respiratory Denies cough - *Gastrointestinal Denies nausea - *Genitourinary Denies blood in urine - *Musculoskeletal Denies joint pain, Denies joint swelling - Integumentary/Breasts Denies rash - *Neurologic Denies dizziness - Psychiatric Reports anxiety Meds Home Medications Medication Instructions Recorded Confirmed Type acetaminophen 325 mg capsule 500 mg PO Q6H PRN 02/24/17 06/01/17 History atorvastatin 10 mg tablet 10 mg PO HS 02/24/17 06/02/17 History buspirone 15 mg tablet 15 mg PO BID tab 02/24/17 06/02/17 History calcium carbonate 500 mg calcium 1,000 mg PO TIDP PRN tab 02/24/17 06/01/17 History (1,250 mg) chewable tablet clonazepam 0.5 mg tablet 0.5 mg PO BID tab 02/24/17 06/02/17 History diphenhydramine 25 mg capsule 25 mg PO Q4HP PRN cap 02/24/17 06/01/17 History duloxetine 60 mg capsule,delayed 60 mg PO DAILY 02/24/17 06/02/17 History release gabapentin 400 mg capsule 400 mg PO TID 02/24/17 06/02/17 History guaifenesin ER 600 mg tablet, 600 mg PO BID 02/24/17 06/02/17 History extended release 12 hr losartan 25 mg tablet 25 mg PO DAILY 02/24/17 06/02/17 History oxybutynin chloride ER 5 mg 5 mg PO DAILY 02/24/17 06/02/17 History tablet,extended release 24 hr pantoprazole 40 mg tablet,delayed 40 mg PO BID tab 02/24/17 06/02/17 History release potassium chloride ER 10 mEq 10 meq PO BID 02/24/17 06/01/17 History tablet,extended release Benzonatate [Benzonatate 100mg 100 mg PO TIDP PRN 05/07/17 06/01/17 History cap] LORazepam [Ativan 1mg tablet] 1 mg PO BID PRN 05/07/17 06/01/17 History Mag Hydrox/Aluminum Hyd/Simeth 30 ml PO Q6HP PRN 05/07/17 06/01/17 History [Gricel-Lanta Liquid] OXcarbazepine [Trileptal] 300 mg PO BID 06/02/17 06/02/17 History Quetiapine Fumarate 200 mg PO TID 06/02/17 06/02/17 History Allergies Allergy/AdvReac Type Severity Reaction Status Date / Time No Known Allergies Allergy Verified 02/24/17 11:13 Exam Vital signs and Labs for Last 24 Hours: Temp Pulse Resp BP Pulse Ox 97.9 F 75 20 158/89 90 L 06/02/17 11:35 06/02/17 12:17 06/02/17 12:17 06/02/17 12:17 06/02/17 12:17 Laboratory Results - last 24 hr 06/02/17 06:00: Troponin I < 0.02 06/02/17 06:00: WBC 1.4 L* D, RBC 3.41 L, Hgb 9.7 L, Hct 30.6 L, MCV 89.6, MCH 28.3, MCHC 31.6 L, RDW 13.2, Plt Count 88 L, MPV 8.3, Neut % (Auto) 51.8, Lymph % (Auto) 36.4, [place] % (Auto) 6.2, Eos % (Auto) 4.3, Baso % (Auto) 1.4, Neut # ( Auto) 0.7 L*, Lymph # (Auto) 0.5 L, [place] # (Auto) 0.1, Eos # (Auto) 0.1, Baso # (Auto) 0.0 06/02/17 06:00: Sodium 142, Potassium 3.8, Chloride 106, Carbon Dioxide 28, Anion Gap 11.8, BUN 13, Creatinine 0.82 D, Estimated Creat Clear 62, Estimated GFR 68, Est GFR ( Amer) 82 D, Glucose 131 H D, Magnesium 1.1 L, Triglycerides 120, Cholesterol 87 L, LDL Cholesterol 29, VLDL Cholesterol 24, HDL Cholesterol 34, Cholesterol/HDL Ratio 2.6 I & O for Last 24 hours: Intake & Output 05/31/17 06/01/17 06/02/17 06/03/17 11:59 11:59 11:59 11:59 Intake Total 480 / 480 Output Total 150 / 150 Balance 330 / 330 Weight 176 lb 7 oz - Constitutional no acute distress - *Routine HEENT Exam Head: Present: normocephalic Eye: Present: EOMI, PERRL ENT: Absent: mucous membranes dry - *Routine Neck Exam Present: supple. Absent: JVD - *Routine Respiratory Exam Present: decreased breath sounds. Absent: respiratory distress - *Routine Cardiovascular Exam Present: RRR, murmur, S4 - *Routine Abdominal Exam Present: soft - *Routine Extremities Exam Absent: calf tenderness - *Routine Skin Exam Present: dry. Absent: rash - *Routine Neurological Exam Present: alert, CN II-XII intact - Routine Psychiatric Exam Present: normal affect H&P: Result - Labs Labs: Short CBC 06/02/17 Range/Units 06:00 WBC 1.4 L* D (4.8-10.8) K/mm3 Hgb 9.7 L (12.2-16.2) g/dL Hct 30.6 L (37.0-47.0) % Plt Count 88 L (142-424) K/mm3 BMP 06/02/17 06:00 Sodium 142 Potassium 3.8 Chloride 106 Carbon Dioxide 28 BUN 13 Creatinine 0.82 D Glucose 131 H D Cardiac Enzymes 06/02/17 Range/Units 06:00 Troponin I < 0.02 (0.00-0.06) ng/ml Assessment and Plan (1) Chest pain Current visit: Yes Status: Acute Qualifiers: Chest pain type: precordial pain Qualified Code(s): R07.2 - Precordial pain Category: Medical Code(s): R07.9 - Chest pain, unspecified (2) COPD (chronic obstructive pulmonary disease) Current visit: Yes Status: Acute Category: Medical Code(s): J44.9 - Chronic obstructive pulmonary disease, unspecified (3) Hyperlipidemia Current visit: Yes Status: Acute Category: Medical Code(s): E78.5 - Hyperlipidemia, unspecified (4) Epistaxis Current visit: Yes Status: Acute Category: Medical Code(s): R04.0 - Epistaxis (5) Hypotension Current visit: Yes Status: Acute Qualifiers: Hypotension type: unspecified hypotension type Qualified Code(s): I95.9 - Hypotension, unspecified Category: Medical Code(s): I95.9 - Hypotension, unspecified (6) Pancytopenia Current visit: Yes Status: Acute Category: Medical Code(s): D61.818 - Other pancytopenia
--- NOTE | 2017-06-02 16:40 | Consult Report ---
*Admission Date: 06/01/17 *Chief complaint: epistaxis *History of present illness: this wf who had nosebleed and was sent to [facility] and returned with chest and upper back pain with abn bp and had abn ekg in ed which improved with improved sx -76-year-old white female resident of [facility] presented to the emergency department for weakness and chest discomfort with radiation into the neck. Patient relates similar episodes recently with activity. She reports a remote history of myocardial infarction without further workup. Patient denies tobacco use or history of diabetes. In the emergency department patient was noted to have T-wave inversion in the inferior leads that resolved with resolution of chest discomfort. Patient was noted to be hypotensive upon ER evaluation which improved once chest discomfort resolved. Patient has a history of chronic pancytopenia with white count in the 1-2000 range, hemoglobin in the 10 range and platelet counts in the 80-100,000 range. Patient had a spontaneous episode of epistaxis earlier in the day that was treated in ER and patient was sent back to [facility] with a resultant chest discomfort, weakness and hypotension episode after that. She was admitted for further evaluation. Troponins overnight have returned normal. EKG this room this morning shows sinus rhythm with nonspecific ST-T abnormalities in inferior leads. Cardiology consulted for further eval Review of Systems - *Neurologic Denies dizziness [facility] History Medical History: Reports:: Chronic Obstructive Pulmonary Disease (COPD), Hyperlipidemia Denies:: Cancer, Diabetes Mellitus Type 1, Diabetes Mellitus Type 2, Internal Pacemaker, MRSA Other Medical History: Reports: Anemia Laterality Cases: Bilateral: Arthroscopy Knee Other Surgeries: No: Pacemaker Amputation: No Fractures: No - *Social History Smoking Status: Never smoker Alcohol Intake: never Substance Use Type: denies use Occupational Status: disabled Housing: [facility] Household Members: caregiver - Psychiatric History Expresses thoughts of harming self/others: None Suicide Plan Description: No Plan *Family Hx:: Unable to obtain Meds Home Medications Medication Instructions Recorded Confirmed Type acetaminophen 325 mg capsule 500 mg PO Q6H PRN 02/24/17 06/01/17 History atorvastatin 10 mg tablet 10 mg PO HS 02/24/17 06/02/17 History buspirone 15 mg tablet 15 mg PO BID tab 02/24/17 06/02/17 History calcium carbonate 500 mg calcium 1,000 mg PO TIDP PRN tab 02/24/17 06/01/17 History (1,250 mg) chewable tablet clonazepam 0.5 mg tablet 0.5 mg PO BID tab 02/24/17 06/02/17 History diphenhydramine 25 mg capsule 25 mg PO Q4HP PRN cap 02/24/17 06/01/17 History duloxetine 60 mg capsule,delayed 60 mg PO DAILY 02/24/17 06/02/17 History release gabapentin 400 mg capsule 400 mg PO TID 02/24/17 06/02/17 History guaifenesin ER 600 mg tablet, 600 mg PO BID 02/24/17 06/02/17 History extended release 12 hr losartan 25 mg tablet 25 mg PO DAILY 02/24/17 06/02/17 History oxybutynin chloride ER 5 mg 5 mg PO DAILY 02/24/17 06/02/17 History tablet,extended release 24 hr pantoprazole 40 mg tablet,delayed 40 mg PO BID tab 02/24/17 06/02/17 History release potassium chloride ER 10 mEq 10 meq PO BID 02/24/17 06/01/17 History tablet,extended release Benzonatate [Benzonatate 100mg 100 mg PO TIDP PRN 05/07/17 06/01/17 History cap] LORazepam [Ativan 1mg tablet] 1 mg PO BID PRN 05/07/17 06/01/17 History Mag Hydrox/Aluminum Hyd/Simeth 30 ml PO Q6HP PRN 05/07/17 06/01/17 History [Gricel-Lanta Liquid] OXcarbazepine [Trileptal] 300 mg PO BID 06/02/17 06/02/17 History Quetiapine Fumarate 200 mg PO TID 06/02/17 06/02/17 History Allergies Allergy/AdvReac Type Severity Reaction Status Date / Time No Known Allergies Allergy Verified 02/24/17 11:13 Exam Vital signs and Labs for Last 24 Hours: Temp Pulse Resp BP Pulse Ox 97.9 F 75 20 158/89 90 L 06/02/17 11:35 06/02/17 12:17 06/02/17 12:17 06/02/17 12:17 06/02/17 12:17 Laboratory Results - last 24 hr 06/02/17 06:00: Troponin I < 0.02 06/02/17 06:00: WBC 1.4 L* D, RBC 3.41 L, Hgb 9.7 L, Hct 30.6 L, MCV 89.6, MCH 28.3, MCHC 31.6 L, RDW 13.2, Plt Count 88 L, MPV 8.3, Neut % (Auto) 51.8, Lymph % (Auto) 36.4, [place] % (Auto) 6.2, Eos % (Auto) 4.3, Baso % (Auto) 1.4, Neut # ( Auto) 0.7 L*, Lymph # (Auto) 0.5 L, [place] # (Auto) 0.1, Eos # (Auto) 0.1, Baso # (Auto) 0.0 06/02/17 06:00: Sodium 142, Potassium 3.8, Chloride 106, Carbon Dioxide 28, Anion Gap 11.8, BUN 13, Creatinine 0.82 D, Estimated Creat Clear 62, Estimated GFR 68, Est GFR ( Amer) 82 D, Glucose 131 H D, Magnesium 1.1 L, Triglycerides 120, Cholesterol 87 L, LDL Cholesterol 29, VLDL Cholesterol 24, HDL Cholesterol 34, Cholesterol/HDL Ratio 2.6 I & O for Last 24 hours: Intake & Output 05/30/17 05/31/17 06/01/17 06/02/17 23:59 23:59 23:59 23:59 Intake Total 720 / 720 Output Total 150 / 150 Balance 570 / 570 Weight 176 lb 7 oz 176 lb 7 oz - *Routine HEENT Exam Comments: This patient had been having a small amount of bleeding from her left nasal fossa . When examined at 4:30 PM on June 02, 2017 she had a little bit of dried blood in the left nasal fossa. There was no evidence of any drainage into her throat. SHe apparently has had recurrent epistaxis, the past month. Remainder of the examination was noncontributory. I did recommend is that she use some Afrin nasal spray for 5 days. SHe is fit to be discharged at this time. If any hemorrhaging then she obviously needs to return to the ER. Results - Labs 06/02/17 06:00 06/02/17 06:00 Laboratory Results - last 24 hr 06/02/17 06:00: Troponin I < 0.02 06/02/17 06:00: WBC 1.4 L* D, RBC 3.41 L, Hgb 9.7 L, Hct 30.6 L, MCV 89.6, MCH 28.3, MCHC 31.6 L, RDW 13.2, Plt Count 88 L, MPV 8.3, Neut % (Auto) 51.8, Lymph % (Auto) 36.4, [place] % (Auto) 6.2, Eos % (Auto) 4.3, Baso % (Auto) 1.4, Neut # ( Auto) 0.7 L*, Lymph # (Auto) 0.5 L, [place] # (Auto) 0.1, Eos # (Auto) 0.1, Baso # (Auto) 0.0 06/02/17 06:00: Sodium 142, Potassium 3.8, Chloride 106, Carbon Dioxide 28, Anion Gap 11.8, BUN 13, Creatinine 0.82 D, Estimated Creat Clear 62, Estimated GFR 68, Est GFR ( Amer) 82 D, Glucose 131 H D, Magnesium 1.1 L, Triglycerides 120, Cholesterol 87 L, LDL Cholesterol 29, VLDL Cholesterol 24, HDL Cholesterol 34, Cholesterol/HDL Ratio 2.6 Assessment and Plan (1) Chest pain Current visit: Yes Status: Acute Qualifiers: Chest pain type: precordial pain Qualified Code(s): R07.2 - Precordial pain Category: Medical Code(s): R07.9 - Chest pain, unspecified (2) COPD (chronic obstructive pulmonary disease) Current visit: Yes Status: Acute Category: Medical Code(s): J44.9 - Chronic obstructive pulmonary disease, unspecified (3) Hyperlipidemia Current visit: Yes Status: Acute Category: Medical Code(s): E78.5 - Hyperlipidemia, unspecified (4) Epistaxis Current visit: Yes Status: Acute Category: Medical Code(s): R04.0 - Epistaxis (5) Hypotension Current visit: Yes Status: Acute Qualifiers: Hypotension type: unspecified hypotension type Qualified Code(s): I95.9 - Hypotension, unspecified Category: Medical Code(s): I95.9 - Hypotension, unspecified (6) Pancytopenia Current visit: Yes Status: Acute Category: Medical Code(s): D61.818 - Other pancytopenia
--- NOTE | 2017-06-03 10:07 | Discharge Summary ---
General - General Admission date: 06/01/17 Discharge date: 06/03/17 HPI HPI: this wf who had nosebleed and was [facility] to [facility] and returned with chest and upper back pain with abn bp and had abn ekg in ed which improved with improved sx -76-year-old white female resident of [facility] presented to the emergency department for weakness and chest discomfort with radiation into the neck. Patient relates similar episodes recently with activity. She reports a remote history of myocardial infarction without further workup. Patient denies tobacco use or history of diabetes. In the emergency department patient was noted to have T-wave inversion in the inferior leads that resolved with resolution of chest discomfort. Patient was noted to be hypotensive upon ER evaluation which improved once chest discomfort resolved. Patient has a history of chronic pancytopenia with white count in the 1-2000 range, hemoglobin in the 10 range and platelet counts in the 80-100,000 range. Patient had a spontaneous episode of epistaxis earlier in the day that was treated in ER and patient was sent back to [facility] with a resultant chest discomfort, weakness and hypotension episode after that. She was admitted for further evaluation. Troponins overnight have returned normal. EKG this room this morning shows sinus rhythm with nonspecific ST-T abnormalities in inferior leads. Cardiology consulted for further eval Hospital Course Hospital Course: ent consult- Comments: This patient had been having a small amount of bleeding from her left nasal fossa . When examined at 4:30 PM on June 02, 2017 she had a little bit of dried blood in the left nasal fossa. There was no evidence of any drainage into her throat. SHe apparently has had recurrent epistaxis, the past month. Remainder of the examination was noncontributory. I did recommend is that she use some Afrin nasal spray for 5 days. SHe is fit to be discharged at this time. If any hemorrhaging then she obviously needs to return to the ER. cardiology consult: Assessment and Plan for all problems:: 1. With fluctuating EKG changes, chest discomfort and transient hypotension with a STEPHEN score of 3 would recommend patient have left heart catheterization. Risk and benefits discussed with the patient she agrees to proceed. 2. Add low dose metoprolol 25 mg daily and ASA 81 mg daily. 3. Echo pending 4. Further recommendations pending cath cath results: IMPRESSION: 1. Normal coronary arteries 2. Normal ejection fraction 3. Moderately elevated LVEDP PLAN: 1. Risk factor modification 2. Control of hypertension [facility] Objective Vital signs: Temp Pulse Resp BP Pulse Ox 98.6 F 76 16 126/77 97 06/03/17 08:00 06/03/17 08:00 06/03/17 08:00 06/03/17 08:00 06/03/17 08:00 no acute distress - *Routine HEENT Exam Head: Present: normocephalic Eye: Present: PERRL ENT: Present: mucous membranes moist - *Routine Neck Exam Present: full ROM - *Routine Respiratory Exam Present: CTA bilaterally - *Routine Cardiovascular Exam Present: RRR - *Routine Abdominal Exam Present: soft, normoactive bowel sounds - *Routine Extremities Exam Present: full ROM - *Routine Skin Exam Present: intact - *Routine Neurological Exam Present: alert, oriented X3, CN II-XII intact - Routine Psychiatric Exam Present: normal affect, normal thought process Discharge Plan - Patient Discharge Instructions ACTIVITY: Continue current activity DIET: continue same diet - Follow up Plan Follow up with: Tyrell Ferguson MD [Primary Care Provider] - 1 week Disposition: Home, Self-Skilled Nursing Medications: Home Medications Medication Instructions Recorded Confirmed Type acetaminophen 325 mg capsule 500 mg PO Q6H PRN 02/24/17 06/01/17 History atorvastatin 10 mg tablet 10 mg PO HS 02/24/17 06/02/17 History buspirone 15 mg tablet 15 mg PO BID tab 02/24/17 06/02/17 History calcium carbonate 500 mg calcium 1,000 mg PO TIDP PRN tab 02/24/17 06/01/17 History (1,250 mg) chewable tablet clonazepam 0.5 mg tablet 0.5 mg PO BID tab 02/24/17 06/02/17 History diphenhydramine 25 mg capsule 25 mg PO Q4HP PRN cap 02/24/17 06/01/17 History duloxetine 60 mg capsule,delayed 60 mg PO DAILY 02/24/17 06/02/17 History release gabapentin 400 mg capsule 400 mg PO TID 02/24/17 06/02/17 History guaifenesin ER 600 mg tablet, 600 mg PO BID 02/24/17 06/02/17 History extended release 12 hr losartan 25 mg tablet 25 mg PO DAILY 02/24/17 06/02/17 History oxybutynin chloride ER 5 mg 5 mg PO DAILY 02/24/17 06/02/17 History tablet,extended release 24 hr pantoprazole 40 mg tablet,delayed 40 mg PO BID tab 02/24/17 06/02/17 History release potassium chloride ER 10 mEq 10 meq PO BID 02/24/17 06/01/17 History tablet,extended release Benzonatate [Benzonatate 100mg 100 mg PO TIDP PRN 05/07/17 06/01/17 History cap] LORazepam [Ativan 1mg tablet] 1 mg PO BID PRN 05/07/17 06/01/17 History Mag Hydrox/Aluminum Hyd/Simeth 30 ml PO Q6HP PRN 05/07/17 06/01/17 History [Gricel-Lanta Liquid] OXcarbazepine [Trileptal] 300 mg PO BID 06/02/17 06/02/17 History Quetiapine Fumarate 200 mg PO TID 06/02/17 06/02/17 History Prescriptions/Medication Reconciliation: New Metoprolol Succinate [Toprol XL 25mg tablet] 25 mg PO DAILY 30 Days tab.er.24h Furosemide [Lasix 20mg tablet] 20 mg PO DAILY #30 tab Oxymetazoline HCl [Afrin Nasal [place] 15mL] 0 ml NS DAILY PRN 3 Days #1 bottle PRN Reason: Bleeding Aspirin [Aspirin 81mg chewable tab] 81 mg PO DAILY #30 tab.chew Continue gabapentin 400 mg capsule 400 mg PO TID losartan 25 mg tablet 25 mg PO DAILY oxybutynin chloride ER 5 mg tablet,extended release 24 hr 5 mg PO DAILY pantoprazole 40 mg tablet,delayed release 40 mg PO BID tab potassium chloride ER 10 mEq tablet,extended release 10 meq PO BID acetaminophen 325 mg capsule 500 mg PO Q6H PRN PRN Reason: pain calcium carbonate 500 mg calcium (1,250 mg) chewable tablet 1,000 mg PO TIDP PRN tab PRN Reason: dyspepsia buspirone 15 mg tablet 15 mg PO BID tab diphenhydramine 25 mg capsule 25 mg PO Q4HP PRN cap PRN Reason: allergy symptoms duloxetine 60 mg capsule,delayed release 60 mg PO DAILY atorvastatin 10 mg tablet 10 mg PO HS guaifenesin ER 600 mg tablet, extended release 12 hr 600 mg PO BID LORazepam [Ativan 1mg tablet] 1 mg PO BID PRN PRN Reason: Anxiety Mag Hydrox/Aluminum Hyd/Simeth [Gricel-Lanta Liquid] 30 ml PO Q6HP PRN PRN Reason: Heartburn Benzonatate [Benzonatate 100mg cap] 100 mg PO TIDP PRN PRN Reason: Cough Quetiapine Fumarate 200 mg PO TID OXcarbazepine [Trileptal] 300 mg PO BID Discontinued clonazepam 0.5 mg tablet 0.5 mg PO BID tab
--- NOTE | 2017-06-03 16:36 | Cardiology Report ---
PROCEDURE: 2-D M-mode and color Doppler study INDICATIONS FOR THE TEST: Chest pain + COPD Heart Murmur Tobacco Smoking Palpitations Fatigue Syncope Edema Hypertension Diabetes Mellitus Rheumatic Fever SOB HICKMAN Obesity Hyperlipidemia Family History HD Additional History PATIENT INFORMATION HEIGHT: 68 WEIGHT:176 GENDER: Female B/P:103/61 2-D/M-MODE INTERPRETATION: 2-D MEASUREMENTS OBSERVED VALUES IN CMS Right Ventricular Dimension (RVDd) 2.4 Interventricular Septum (Thickness)(IVsd) 1.4 Left Ventricular Internal Dimensions(LVIDd) 3.8 Left Ventricular Posterior Wall (Thickness)(LVPWd) 1.1 Aortic Root 3.8 Aortic Cusp Separation 1.9 Left Atrial Dimensions (LAD) 3.6 2D 1. Left atrium is mildly enlarged, left ventricle is normal size, there is mild concentric left ventricular hypertrophy, visually estimated ejection fraction 55% with no obvious regional wall motion abnormality. 2. The right atrium and right ventricle are relatively normal size and function 3. The aortic valve is minimally thickened and fibrosed. 4. The mitral and tricuspid valve are grossly normal. 5. The pulmonic valve is poorly visualized 6. No significant pericardial effusion noted. DOPPLER INTERROGATION: Doppler interrogation of the aortic, mitral and tricuspid valvular presence of mild aortic, mitral and tricuspid regurgitation, tricuspid and jet velocity is insufficient for acquisition of the right ventricular systolic function, grade 1 diastolic dysfunction seen with tissue Doppler evidence of raised left atrial pressure. CONCLUSION: 1. Mildly enlarged left atrium, normal left ventricular size, mild concentric left ventricular hypertrophy, visually estimated ejection fraction 55% with no obvious regional wall motion abnormality, grade 1 diastolic dysfunction seen with tissue Doppler evidence of raised left atrial pressure. 2. Mild aortic, mild mitral and tricuspid regurgitation 3. No significant pericardial effusion noted.
== END 2017-06-03 11:26 | disposition home or self-care (01) ==
LOC: ER 16:56 → 2ND 16:56
PROVIDERS: ADMIT Emergency Medicine; ATTEND Emergency Medicine

== ENCOUNTER → 2017-11-11 15:06 | Outpatient (REF) | payer MEDICARE, OTHER, SELFPAY | LOC: LAB 15:06 | PROVIDERS: Visit Provider Urology | DX: R32 Unspecified urinary incontinence (principal) | CPT/HCPCS: 87086; 87088; 87186 ==

== ENCOUNTER → 2018-02-03 12:19 | Outpatient (CLI) | payer MEDICARE, OTHER, SELFPAY | LOC: LAB 12:19 → LAB.DROPOF 02-04 09:09 | PROVIDERS: Visit Provider Urology | DX: N39.0 Urinary tract infection, site not specified (principal) | CPT/HCPCS: 87086; 87088; 87186 ==